=== PATIENT | female | born 2005 | race Caucasian/White ===

== ENCOUNTER 2025-02-27 12:47 | Emergency (ER) | payer BC ==
[~2025-02-27] VITALS: Ht 160 cm; Wt 56.8 kg
[2025-02-27 12:54] VITALS: TEMP 98.1
[2025-02-27 13:47] LABS: LEUKOCYTE ESTERASE ,URINE SMALL (Neg); NITRITES, URINE POSITIVE (Neg); OCCULT BLOOD,URINE NEGATIVE (Neg)
[2025-02-27 13:50] LABS: UA COLLECTION TYPE CLN CATCH MIDSTREAM
[2025-02-27 13:53] LABS: AMORPHOUS PHOSPHATES 1+; MUCUS STRANDS NONE SEEN /LPF (Neg); SQUAMOUS EPITHELIAL CELL,UR MODERATE /LPF (FEW); WBC CLUMPS,URINE FEW /HPF (NEGATIVE)
[2025-02-27] MEDS ORDERED: CEPH-585 PO (14:39)
--- NOTE | 2025-02-27 14:41 | Physician Documentation ---
History of Present Illness ~ Chief Complaint: Urinary Symptoms Stated Complaint: POSS UTI Time Seen by MD: 14:23 HPI Patient is a 19-year-old female that presents to the emergency department for three days of dysuria without hematuria. Recent denies any fever nausea vomitin g diarrhea or CVA tenderness at the same. Patient reports no other past medical history and no allergies at the time. Medication Reconciliation Allergies: Coded Allergies: No Known Allergies (Unverified , 02/27/25) Review of Systems ROS As stated above in the HPI, otherwise all systems are reviewed and negative. Physical Exam Vital Signs: Temperature: 98.1, Source: Temporal, Heart Rate: 97, Respiratory Rate: 16, BP: 122/75, Pulse Oximetry: 99, Weight: 56.820 Oxygen Flow Rate: 0 Physical Exam VITALS: Reviewed and as above. GENERAL: Alert, no apparent distress. HEENT: Normocephalic, atraumatic, PERRL, EOMI, dry mucosa, no erythema RESPIRATORY: Lungs clear, normal breath sounds, no respiratory distress. CHEST: No accessory muscle use, no retractions CV: Regular rate, rhythm, no edema, no murmur, No: JVD GI: Soft, non-tender, bowels sounds present, no rebound, guarding, or rigidity BACK: No CVA tenderness, or swelling MUSCULOSKELETAL No deformities, no edema SKIN: Warm and dry, no rash NEURO: Oriented x4, No motor or sensory deficit PSYCH: Normal mood and affect, no agitation Progress Results/Orders Results/Orders Vital Signs 02/27/25 12:54 Temp 98.1 Pulse 97 Resp 16 B/P (MAP) 122/75 Pulse Ox 99 O2 Flow Rate 0 Laboratory Tests Test 02/27/25 12:56 Urine Specimen Description Cln catch midstream Urine Color Yellow Urine Clarity Cloudy Urine pH 8.0 Urine Specific [place] 1.015 Urine Protein Trace Urine Glucose (UA) Negative Urine Ketones Negative Urine Occult Blood Negative Urine Nitrite Positive H Urine Bilirubin Negative Urine Urobilinogen 1.0 Urine Leukocyte Esterase Small H Urine RBC 0-2 Urine WBC 50-100 H Urine WBC Clumps Few Urine Squamous Epithelial Cells Moderate Urine Amorphous Phosphates 1+ Urine Bacteria 2+ Urine Mucus None seen Urine Culture Indicated Indicated Volume Urine Centrifuged 10 ml Urine Comment Medical Decision Making Findings This patient presents with symptoms consistent with acute uncomplicated cystitis. No systemic symptoms. Not septic. Well appearing. Low suspicion for acute pyelonephritis given lack of fever, CVAT, or systemic features. Low suspicion for kidney stone or infected stone. Upreg negative so doubt ectopic . Low suspicion for ovarian torsion, PID, or appendicitis. We will prescribe Keflex Departure Disposition: HOME / SELF CARE / HOMELESS Impression: Primary Impression: Acute urinary tract infection Additional Impression: Dysuria Condition: Stable Discharge Instructions: Dysuria, Urinary Tract Infection, Adult Additional Instructions: You were seen in the emergency department for dysuria and UTI symptoms x3 days. Diagnosed with a urinary tract infection prescribed cephalexin. Take this medication until it is completed. Follow up with the primary care provider. Return to the emergency department if you have any worsening of your current symptoms or any additional concerning symptoms IE blood in your urine fevers back pain nausea vomiting diarrhea. Referrals: NO PRIMARY CARE PROVIDER (PCP) Prescriptions Cephalexin*Monohydrate* (Keflex*) 500 Mg Capsule 1 CAP PO Q8H for 10 Days, #30 CAP Prov: CARLY ARGUETA 02/27/25 Education Educated: Patient Educated regarding: treatment, need for follow up Signature Scribe Signature: A Attestation: Scribed for Carly Argueta by FAMILIA Talley . 02/27/25 14:40 CARLY ARGUETA Feb 27, 2025 14:40
[2025-02-27 14:46] VITALS: BP 122/75; PULSE 89; RESP 16; O2SAT 99
== END 2025-02-27 14:48 | disposition home or self-care (01) ==
LOC: ER 12:49
DX: N39.0 Urinary tract infection, site not specified (principal); R30.0 Dysuria
CPT/HCPCS: 81001; 87077; 87088; 87186; 99283